=== PATIENT | female | born 2000 | race Caucasian/White ===

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

== ENCOUNTER 2019-01-11 14:29 | Emergency (ER) | payer OTHER, SELFPAY ==
[2019-01-11 15:09] VITALS: BP 131/87
--- NOTE | 2019-01-11 15:13 | EDM.PDOC ---
ED HPI GENERAL MEDICAL PROBLEM - General Chief Complaint: Lower Extremity Injury/Pain Stated Complaint: RT ANKLE PAIN, FELL DOWN STEPS Time Seen by Provider: 01/11/19 14:30 Source of Information: Reports: Patient History Limitations: Reports: No Limitations - History of Present Illness INITIAL COMMENTS - FREE TEXT/NARRATIVE: Fell on rt kole,twisted it. Right Ankle Pain Score (Numeric/FACES): 4 - Related Data Allergies Allergy/AdvReac Type Severity Reaction Status Date / Time Penicillins Allergy Rash Verified 01/11/19 14:53 Home Meds: Home Meds Norgestimate-Ethinyl Estradiol [Sprintec 28 Day Tablet] 1 tab PO DAILY 01/03/17 [History] Escitalopram [Lexapro] 20 mg PO DAILY 01/11/19 [History] Past Medical History - Past Health History Medical/Surgical History: Denies Medical/Surgical History - Infectious Disease History Infectious Disease History: Reports: Chicken Pox - Past Surgical History Musculoskeletal Surgical History: Reports: Other (See Below) Other Musculoskeletal Surgeries/Procedures:: back surgery Social & Family History - Tobacco Use Smoking Status *Q: Never Smoker - Caffeine Use Caffeine Use: Reports: Soda - Recreational Drug Use Recreational Drug Use: No Review of Systems - Review of Systems Review Of Systems: ROS reveals no pertinent complaints other than HPI. ED EXAM, GENERAL - Physical Exam Exam: See Below Free Text/Narrative:: Mild effusion of left right ankle. Tender lateral malleolus.FullROM Course - Vital Signs Last Recorded V/S: Last Vital Signs Temp 98.1 F 01/11/19 14:29 Pulse 96 01/11/19 14:29 Resp 18 01/11/19 14:29 BP 131/87 01/11/19 14:29 Pulse Ox 100 01/11/19 14:29 - Orders/Labs/Meds Orders: Active Orders 24 hr Category Date Time Status Ankle Min 3V Rt [CR] Stat Exams 01/11/19 14:53 Taken Departure - Departure Time of Disposition: 15:12 Disposition: Home, Self-Care 01 Condition: Good Clinical Impression: Ankle sprain - Discharge Information Referrals: Boby Moreno MD [Primary Care Provider] - - Problem List & Annotations (1) Ankle sprain SNOMED Code(s): 06843064 Code(s): S93.409A - SPRAIN OF UNSP LIGAMENT OF UNSPECIFIED ANKLE, INIT ENCNTR Status: Acute Qualifiers: Encounter type: initial encounter - Problem List Review Problem List Initiated/Reviewed/Updated: Yes - My Orders Last 24 Hours: My Active Orders 01/11/19 14:53 Ankle Min 3V Rt [CR] Stat - Assessment/Plan Last 24 Hours: My Active Orders 01/11/19 14:53 Ankle Min 3V Rt [CR] Stat Plan: RICE
--- NOTE | 2019-01-12 10:31 | CR ---
INDICATION: Sprain, lateral pain. RIGHT ANKLE: Three views of the right ankle were obtained 01/11/19 - no comparisons. There appears to be a mild degree of soft tissue swelling at the lateral malleolus. There is also a subtle asymmetry in the joint space with slight widening of the ankle mortise laterally. This could be a normal variant or possibly secondary to a mild degree of strain of ligaments laterally. No acute fracture or dislocation was identified. No other bone or joint abnormality was suggested. If symptoms persist - if occult fracture site is suspected clinically, re- examination in 10-14 days may be helpful. Depending upon clinical necessity also, stress views of the ankle may be helpful for further evaluation. MTDD
== END 2019-01-11 15:25 | disposition home or self-care (01) ==
LOC: FB.ED 14:29
DX: S93.401A Sprain of unspecified ligament of right ankle, initial encounter (principal); Z88.0 Allergy status to penicillin; Z79.899 Other long term (current) drug therapy; W19.XXXA Unspecified fall, initial encounter; X50.9XXA Other and unspecified overexertion or strenuous movements or postures, initial encounter
CPT/HCPCS: 73610-RT; 99283-25